=== PATIENT | female | born 1990 | race Caucasian/White ===

== ENCOUNTER 2017-12-15 10:33 | Emergency (ER) | payer BC ==
[~2017-12-15] VITALS: Ht 165.1 cm; Wt 56.2 kg
[2017-12-15 10:37] VITALS: BP_SYST 118
[2017-12-15] MEDS ORDERED: KETOROLAC TROMETHAMINE 60 MG/2 ML VIAL IM ONE (11:00)
[2017-12-15] MEDS ORDERED: ONDANSETRON 4 MG ODT TAB PO ONE (11:00)
[2017-12-15 11:35] LABS: CALCIUM 8.8 mg/dL (8.4-11.0); CREATININE 0.63 mg/dL (0.55-1.30); POTASSIUM 3.8 mmol/L (3.5-5.1)
[2017-12-15 12:27] VITALS: BP_SYST 114
== END 2017-12-15 12:27 | disposition home or self-care (01) ==
LOC: SED 10:33
DX: K52.9 Noninfective gastroenteritis and colitis, unspecified (principal)
CPT/HCPCS: 36415; 80048; 81025; 96372; 99283; J1885; Q0162